=== PATIENT | male | born 1985 | race Caucasian/White ===

== ENCOUNTER 2017-11-24 10:34 | Emergency (ER) | payer SELFPAY ==
[2017-11-24] MEDS ORDERED: ASPIRIN 81 MG TABLET, CHEWABLE PO ONE (11:30)
--- NOTE | 2017-11-24 11:31 | ER Document Report ---
ED Medical Screen (RME) - General Chief Complaint: Chest Wall Pain Stated Complaint: CHEST PAIN, SHORTNESS OF BREATH Time Seen by Provider: 11/24/17 11:26 Notes: RME DISCLOSURE I have seen this patient as part of a Rapid Medical Evaluation and, if applicable, placed any initially appropriate orders. The patient will be seen and fully evaluated, including a full history and physical exam, by a provider ( in Main ED or Fast Track) when a room becomes available. 32-year-old male here with several days of right-sided chest pain radiating down the right arm with some shortness of breath. Symptoms are worse with exertion however he has them at times when he is sitting still as well. Sometimes worse with eating. TRAVEL OUTSIDE OF THE [place] IN LAST 30 DAYS: No - Related Data Allergies/Adverse Reactions: diphenhydramine [From Benadryl] Adverse Reaction (Verified 11/24/17 11:15) Past Medical History - Social History Chew tobacco use (# tins/day): No Frequency of alcohol use: None Drug Abuse: None Neurological Medical History: Reports: Hx Migraine Renal/ Medical History: Denies: Hx Peritoneal Dialysis Past Surgical History: Reports: Hx Testicular Surgery Physical Exam - Vital signs Vitals: Temp Pulse Resp BP Pulse Ox 97.8 F 66 18 134/82 H 98 11/24/17 10:42 11/24/17 10:42 11/24/17 10:42 11/24/17 10:42 11/24/17 10:42 Course - Vital Signs Vital signs: Temp Pulse Resp BP Pulse Ox 97.8 F 66 18 134/82 H 98 11/24/17 10:42 11/24/17 10:42 11/24/17 10:42 11/24/17 10:42 11/24/17 10:42
[2017-11-24 12:25] LABS: HEMATOCRIT 40.9 % (37.9-51.0); HEMOGLOBIN 13.9 g/dL (13.5-17.0); MEAN CORPUSCULAR HEMOGLOBIN 29.6 pg (27.0-33.4); MEAN CORPUSCULAR HGB CONC 34.1 g/dL (32.0-36.0); MEAN CORPUSCULAR VOLUME 87 fl (80-97); PLATELET COUNT 238 10^3/uL (150-450); RED CELL DISTRIBUTION WIDTH 14.1 % (11.5-14.0); WHITE BLOOD COUNT 6.3 10^3/uL (4.0-10.5)
[2017-11-24 12:33] LABS: ALANINE AMINOTRANSFERASE 74 U/L (21-72); ALBUMIN 4.6 g/dL (3.5-5.0); ALKALINE PHOSPHATASE 79 U/L (38-126); ANION GAP 15 (5-19); ASPARTATE AMINO TRANSFERASE 41 U/L (17-59); BILIRUBIN,DIRECT 0.2 mg/dL (0.0-0.4); BILIRUBIN,TOTAL 0.5 mg/dL (0.2-1.3); BLOOD UREA NITROGEN 13 mg/dL (7-20); CALCIUM 9.6 mg/dL (8.4-10.2); CARBON DIOXIDE 26 mmol/L (22-30); CHLORIDE 101 mmol/L (98-107); GLUCOSE 100 mg/dL (75-110); LIPASE 54.8 U/L (23-300); POTASSIUM 4.4 mmol/L (3.6-5.0); SODIUM 141.5 mmol/L (137-145); TOTAL PROTEIN 9.6 g/dL (6.3-8.2)
--- NOTE | 2017-11-24 12:37 | RADIOLOGY REPORT (SQ) ---
EXAM DESCRIPTION: CHEST PA/LAT COMPLETED DATE/TIME: 11/24/2017 12:20 pm REASON FOR STUDY: CP SOB COMPARISON: None. EXAM PARAMETERS: NUMBER OF VIEWS: two views TECHNIQUE: Digital Frontal and Lateral radiographic views of the chest acquired. RADIATION DOSE: NA LIMITATIONS: none FINDINGS: LUNGS AND PLEURA: No opacities, masses or pneumothorax. No pleural effusion. MEDIASTINUM AND HILAR STRUCTURES: No masses or contour abnormalities. HEART AND VASCULAR STRUCTURES: Heart normal size. No evidence for failure. BONES: No acute findings. HARDWARE: None in the chest. OTHER: No other significant finding. IMPRESSION: NO SIGNIFICANT RADIOGRAPHIC FINDING IN THE CHEST. TECHNICAL DOCUMENTATION: JOB ID: [id number] [employer]- All Rights Reserved Reading location - IP/workstation name: [email or web address]
[2017-11-24 12:53] LABS: ABSOLUTE LYMPHOCYTES# (MANUAL) 2.8 10^3/uL (0.5-4.7); ABSOLUTE MONOCYTES # (MANUAL) 0.4 10^3/uL (0.1-1.4); BAND NEUTROPHILS % (MANUAL) 2 % (3-5); BASOPHILS % (MANUAL) 0 % (0-2); EOSINOPHILS % (MANUAL) 2 % (0-6); LYMPHOCYTES % (MANUAL) 43 % (13-45); MONOCYTES % (MANUAL) 6 % (3-13); PLATELET COMMENT ADEQUATE; POLYCHROMASIA SLIGHT; SEGMENTED NEUTROPHILS % (MAN) 45 % (42-78); TOTAL CELLS COUNTED 100
--- NOTE | 2017-11-24 13:07 | ER Document Report ---
ED Cardiac - General Chief Complaint: Chest Wall Pain Stated Complaint: CHEST PAIN, SHORTNESS OF BREATH Time Seen by Provider: 11/24/17 11:26 Mode of Arrival: Ambulatory Information source: Patient Notes: Patient is a 32-year-old male who presents to the ER today for chest pain to the right side of his chest, worse with breathing, pain to his right arm and right leg. 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 He does admit to chronic low back pain that he is seeing a chiropractor for in the past. He denies any cardiac history, does not take any medications for blood pressure or cholesterol, has never had a heart attack or stroke. He states his parents do not have any cardiac history. He is a smoker. TRAVEL OUTSIDE OF THE [place] IN LAST 30 DAYS: No - Related Data Allergies/Adverse Reactions: diphenhydramine [From Benadryl] Adverse Reaction (Verified 11/24/17 11:15) Past Medical History - General Information source: Patient - Social History Smoking Status: Never Smoker Chew tobacco use (# tins/day): No Frequency of alcohol use: None Drug Abuse: None Family History: Reviewed & Not Pertinent Patient has suicidal ideation: No Patient has homicidal ideation: No Neurological Medical History: Reports: Hx Migraine Renal/ Medical History: Denies: Hx Peritoneal Dialysis Past Surgical History: Reports: Hx Testicular Surgery Review of Systems - Review of Systems Constitutional: No symptoms reported EENT: No symptoms reported Cardiovascular: See HPI Respiratory: No symptoms reported Gastrointestinal: No symptoms reported Genitourinary: No symptoms reported Male Genitourinary: No symptoms reported Musculoskeletal: See HPI Skin: No symptoms reported Hematologic/Lymphatic: No symptoms reported Neurological/Psychological: No symptoms reported Physical Exam - Vital signs Vitals: Temp Pulse Resp BP Pulse Ox 97.8 F 66 18 134/82 H 98 11/24/17 10:42 11/24/17 10:42 11/24/17 10:42 11/24/17 10:42 11/24/17 10:42 - Notes Notes: PHYSICAL EXAMINATION: GENERAL: Well-appearing and in no acute distress. HEAD: Atraumatic, normocephalic. EYES: Pupils equal round and reactive to light, extraocular movements intact, sclera anicteric, conjunctiva are normal. NECK: Normal range of motion, supple without lymphadenopathy LUNGS: CTAB and equal. No wheezes rales or rhonchi. HEART: Chest exquisitely tender to light touch to the right chest, regular rate and rhythm without murmurs ABDOMEN: Soft, no tenderness. No guarding, no rebound BACK: no vertebral tenderness, normal ROM GI/: no CVA tenderness EXTREMITIES: Right arm and right leg exquisitely tender to light touch entirely , normal range of motion, no pitting edema. No cyanosis. NEUROLOGICAL: Cranial nerves grossly intact. Normal sensory/motor exams. PSYCH: Normal mood, normal affect. SKIN: Warm, Dry, normal turgor, no rashes or lesions noted Course - Re-evaluation Re-evalutation: 11/24/17 16:42 Patient was exquisitely tender to very light touch to the right chest, right arm and right leg. Because of the complaint of shortness of breath on exertion and even while sitting still with right-sided chest pain, CTA was performed and negative for any pulmonary emboli or acute pathology. Because of right arm and leg pain, CAT scan of the cervical spine as well as spine x-rays were performed and negative for any acute pathology. Lab work is unremarkable today including normal cardiac enzymes. EKG revealed a normal sinus rhythm without evidence of ischemia or abnormality. Patient's pain seems very muscular. I will provide her with a muscle relaxer and have advised that he take anti-inflammatories for pain. - Vital Signs Vital signs: Temp Pulse Resp BP Pulse Ox 97.8 F 66 19 116/67 95 11/24/17 10:42 11/24/17 10:42 11/24/17 14:52 11/24/17 14:52 11/24/17 14:52 - Laboratory Result Diagrams: 11/24/17 11:50 11/24/17 11:50 Laboratory results interpreted by me: 11/24/17 11/24/17 11:50 11:50 RDW 14.1 H Band Neutrophils % 2 L ALT 74 H Total Protein 9.6 H Discharge - Discharge Clinical Impression: Chest wall pain, Right arm pain, Right leg pain Condition: Stable Disposition: HOME, SELF-CARE Additional Instructions: Return immediately for any new or worsening symptoms. Follow up with primary care provider, call tomorrow to make followup appointment. Prescriptions: Ibuprofen [Motrin 800 mg Tablet] 800 mg PO Q8H PRN #30 tab PRN Reason: Methocarbamol [Robaxin 500 mg Tablet] 1,000 mg PO BID PRN #40 tablet PRN Reason: Forms: Return to Work
[2017-11-24] MEDS ORDERED: METHOCARBAMOL 500 MG TABLET PO ONE (13:31)
[2017-11-24] MEDS ORDERED: OXYCODONE-ACETAMINOPHEN 5-325 MG TABLET PO ONE (13:31)
--- NOTE | 2017-11-24 14:06 | RADIOLOGY REPORT (SQ) ---
EXAM DESCRIPTION: CT CERVICAL SPINE WITHOUT COMPLETED DATE/TIME: 11/24/2017 1:50 pm REASON FOR STUDY: cp, sob, right arm pain, right leg pain COMPARISON: None. TECHNIQUE: Axial images acquired through the cervical spine without intravenous contrast. Images re viewed with lung, soft tissue and bone windows. Reconstructed coronal and sagittal MPR images review ed. Images stored on PACS. All CT scanners at this facility use dose modulation, iterative reconstruction, and/or weight based d osing when appropriate to reduce radiation dose to as low as reasonably achievable (ALARA). [facility]: Dose Right [facility]: CareDose [facility]: Dose Right [facility]: Teradose 4D [facility]: OrderMyGear RADIATION DOSE: CT Rad equipment meets quality standard of care and radiation dose reduction techniq ues were employed. CTDIvol: 22.5 mGy. DLP: 493 mGy-cm. mGy. LIMITATIONS: Patient motion. FINDINGS: ALIGNMENT: Anatomic. MINERALIZATION: Normal. VERTEBRAL BODIES: No fractures or dislocation. DISCS: No significant disc disease. FACETS, LATERAL MASSES, POSTERIOR ELEMENTS: No fractures. No dislocation. No acute findings. HARDWARE: None in the spine. VISUALIZED RIBS: No fractures. LUNG APICES AND SOFT TISSUES: No significant or acute findings. OTHER: No other significant finding. IMPRESSION: NO ACUTE OR SIGNIFICANT FINDINGS IN THE CERVICAL SPINE. TECHNICAL DOCUMENTATION: JOB ID: [id number] Quality ID # [id number]: Final reports with documentation of one or more dose reduction techniques (e.g., Au tomated exposure control, adjustment of the mA and/or kV according to patient size, use of iterative reconstruction technique) 2010 [employer]- All Rights Reserved Reading location - IP/workstation name: [email or web address]
--- NOTE | 2017-11-24 14:13 | RADIOLOGY REPORT (SQ) ---
EXAM DESCRIPTION: CTA CHEST COMPLETED DATE/TIME: 11/24/2017 2:00 pm REASON FOR STUDY: cp, sob, right arm pain, right leg pain COMPARISON: None. TECHNIQUE: CT scan of the chest performed using helical scanning technique with dynamic intravenous contrast injection. Images reviewed with lung, soft tissue and bone windows. Reconstructed coronal and sagittal MPR images reviewed. Additional 3 dimensional post-processing performed to develop Maximal Intensity Projection images (GA P). All images stored on PACS. All CT scanners at this facility use dose modulation, iterative reconstruction, and/or weight based d osing when appropriate to reduce radiation dose to as low as reasonably achievable (ALARA). [facility]: Dose Right [facility]: CareDose [facility]: Dose Right [facility]: Teradose 4D [facility]: [place] CONTRAST TYPE AND DOSE: contrast/concentration: Isovue 370.00 mg/ml; Total Contrast Delivered: 82.0 ml; Total Saline Delivered: 110.0 ml RENAL FUNCTION: GFR > 60. RADIATION DOSE: CT Rad equipment meets quality standard of care and radiation dose reduction techniq ues were employed. CTDIvol: 19.8 - 29.8 mGy. DLP: 1126 mGy-cm. . LIMITATIONS: None. FINDINGS: LUNGS AND PLEURA: No masses, infiltrates, pneumothorax. No pleural effusions, calcificati ons. AORTA AND GREAT VESSELS: No aneurysm. Contrast bolus not optimized for the aorta. HEART: No pericardial effusion. No significant coronary artery calcifications. PULMONARY ARTERIES: No emboli visualized in the main pulmonary arteries or the segmental branches. HILAR AND MEDIASTINAL STRUCTURES: No identified masses or abnormal nodes. HARDWARE: None in the chest. UPPER ABDOMEN: No significant findings. Limited exam. THYROID AND OTHER SOFT TISSUES: No masses. No adenopathy. BONES: No acute or significant finding. 3D MIPS: Confirm above findings. OTHER: No other significant finding. IMPRESSION: NORMAL CTA OF THE CHEST. NO PULMONARY EMBOLI. COMMENT: Quality ID # [id number]: Final reports with documentation of one or more dose reduction techniques (e.g., Automated exposure control, adjustment of the mA and/or kV according to patient size, use of iterative reconstruction technique) TECHNICAL DOCUMENTATION: JOB ID: [id number] [employer]- All Rights Reserved Reading location - IP/workstation name: [email or web address]
--- NOTE | 2017-11-24 14:40 | RADIOLOGY REPORT (SQ) ---
EXAM DESCRIPTION: L SPINE WHOLE COMPLETED DATE/TIME: 11/24/2017 2:10 pm REASON FOR STUDY: cp, sob, right arm pain, right leg pain COMPARISON: None. NUMBER OF VIEWS: Five views including obliques. TECHNIQUE: AP, lateral, oblique, and sacral radiographic images acquired of the lumbar spine. LIMITATIONS: None. FINDINGS: MINERALIZATION: Normal. SEGMENTATION: Normal. No transitional anatomy. ALIGNMENT: Normal. VERTEBRAE: Maintained height. No fracture or worrisome bone lesion. DISCS: Preserved height. No significant osteophytes or end plate irregularity. POSTERIOR ELEMENTS: Pedicles and facets are intact. No pars defect or posterior arch defects. HARDWARE: None in the spine. PARASPINAL SOFT TISSUES: Normal. PELVIS: Intact as visualized. No fractures or worrisome bone lesions. SI joints intact. OTHER: No other significant finding. IMPRESSION: NORMAL 5 VIEW LUMBAR SPINE. TECHNICAL DOCUMENTATION: JOB ID: [id number] [employer]- All Rights Reserved Reading location - IP/workstation name: [email or web address]
[2017-11-24 15:01] VITALS: BP 116/67
== END 2017-11-24 15:00 | disposition home or self-care (01) ==
LOC: ER 10:34
DX: R07.89 Other chest pain (principal); R06.02 Shortness of breath; M79.601 Pain in right arm; M79.604 Pain in right leg; M54.5 Low back pain; G89.29 Other chronic pain
CPT/HCPCS: 36415; 71046; 71275; 72110; 72125; 80048; 80076; 83690; 84484; 85025; 99284

== ENCOUNTER 2018-02-10 05:26 | Emergency (ER) | payer SELFPAY ==
[2018-02-10] MEDS ORDERED: IBUPROFEN 800 MG TABLET PO ONE (06:22)
--- NOTE | 2018-02-10 06:41 | ER Document Report ---
ED Extremity Problem, Lower - General Chief Complaint: Leg Pain Stated Complaint: LEG PAIN Time Seen by Provider: 02/10/18 06:08 Notes: 32-year-old male to the emergency department chief complaint of pain in his right leg. 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 Thinks it may be just pulled his muscle in his leg but has never had pain like this in the back of his leg. Pain is in the back of the thigh. Radiates down his lower extremity. Denies any significant swelling of the calf but does have some pain in the right calf. Denies any other symptoms at this time. States that he was worried that he he may have a blood clot because multiple people in his family of had blood clots as well as of blood clots. Denies heavy alcohol or drug abuse. Does not smoke. No recent surgeries. Not any significant risk for DVT or PE. TRAVEL OUTSIDE OF THE [place] IN LAST 30 DAYS: No - HPI Patient complains to provider of: Pain Location: Leg Occurred: Yesterday - Related Data Allergies/Adverse Reactions: diphenhydramine [From Benadryl] Adverse Reaction (Verified 02/10/18 07:39) Past Medical History - General Information source: Patient - Social History Smoking Status: Never Smoker Cigarette use (# per day): No Chew tobacco use (# tins/day): No Frequency of alcohol use: None Drug Abuse: None Lives with: Family Family History: Reviewed & Not Pertinent Patient has suicidal ideation: No Patient has homicidal ideation: No Neurological Medical History: Reports: Hx Migraine Renal/ Medical History: Denies: Hx Peritoneal Dialysis Past Surgical History: Reports: Hx Testicular Surgery Review of Systems - Review of Systems Constitutional: No symptoms reported EENT: No symptoms reported Cardiovascular: No symptoms reported Respiratory: No symptoms reported Gastrointestinal: No symptoms reported Genitourinary: No symptoms reported Male Genitourinary: No symptoms reported Musculoskeletal: See HPI, Muscle pain Skin: No symptoms reported Hematologic/Lymphatic: No symptoms reported Neurological/Psychological: No symptoms reported Physical Exam - Vital signs Vitals: Temp Pulse Resp BP Pulse Ox 98.2 F 78 17 134/79 H 95 02/10/18 05:35 02/10/18 05:35 02/10/18 05:35 02/10/18 05:35 02/10/18 05:35 Interpretation: Normal - General General appearance: Appears well, Alert - HEENT Head: Normocephalic, Atraumatic Eyes: Normal Pupils: PERRL - Respiratory Respiratory status: No respiratory distress Chest status: Nontender Breath sounds: Normal Chest palpation: Normal - Cardiovascular Rhythm: Regular Heart sounds: Normal auscultation Murmur: No - Abdominal Inspection: Normal Distension: No distension Bowel sounds: Normal Tenderness: Nontender Organomegaly: No organomegaly - Back Back: Normal, Nontender - Extremities General upper extremity: Normal inspection, Nontender, Normal color, Normal ROM , Normal temperature General lower extremity: Normal inspection, Normal color, Normal ROM, Normal temperature, Normal weight bearing, Other - Is mild tenderness to palpation in the posterior right thigh area. Mild tenderness palpation in the right posterior calf. NO significant asymmetrical edema or swelling.. No: Thomas's sign Course - Re-evaluation Re-evalutation: 02/10/18 08:14 This time likely represents a muscle strain. Unlikely this is a DVT but due to the fact the patient did bring it up and is concerned about it will do a ultrasound to rule out DVT at this time. Awaiting arrival of horticultural therapist. 02/10/18 09:00 Sound is unremarkable for DVT. Likely a muscle strain. Will DC with some follow-up instructions. Return for any worsening symptoms of concern. Patient was advised if symptoms get worse in the leg begins to get more swollen he should return and repeat the ultrasound. Will give work note with regards duty restrictions. Patient encouraged to follow-up with his regular doctor. - Vital Signs Vital signs: Temp Pulse Resp BP Pulse Ox 98.2 F 78 17 134/79 H 95 02/10/18 05:35 02/10/18 05:35 02/10/18 05:35 02/10/18 05:35 02/10/18 05:35 Discharge - Discharge Clinical Impression: Right hamstring muscle strain Qualifiers: Encounter type: initial encounter Qualified Code(s): S76.311A - Strain of muscle, fascia and tendon of the posterior muscle group at thigh level, right thigh, initial encounter Disposition: HOME, SELF-CARE Instructions: Muscle Strain ([facility]) Prescriptions: Cyclobenzaprine HCl [Flexeril 5 mg Tablet] 5 mg PO TID #15 tablet Ibuprofen [Motrin 800 mg Tablet] 800 mg PO Q8H PRN 30 Days #30 tab PRN Reason: Forms: Return to Work
[2018-02-10] MEDS ORDERED: HYDROCODONE/ACETAMINOPHEN 5-325 MG TABLET PO PRN (08:10)
[2018-02-10 09:16] VITALS: BP 112/72
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
== END 2018-02-10 09:16 | disposition home or self-care (01) ==
LOC: ER 05:26
DX: S76.311A Strain of muscle, fascia and tendon of the posterior muscle group at thigh level, right thigh, initial encounter (principal); M79.604 Pain in right leg; X50.0XXA Overexertion from strenuous movement or load, initial encounter
CPT/HCPCS: 93971; 99284

== ENCOUNTER 2018-06-08 04:03 | Emergency (ER) | payer SELFPAY ==
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
[2018-06-08 05:12] LABS: ABSOLUTE EOSINOPHILS # (AUTO) 0.1 10^3/uL (0.0-0.6); ABSOLUTE LYMPHOCYTES (AUTO) 1.8 10^3/uL (0.5-4.7); ABSOLUTE MONOCYTES (AUTO) 0.6 10^3/uL (0.1-1.4); ABSOLUTE NEUT (AUTO) 2.2 10^3/uL (1.7-8.2); BASOPHILS % (AUTO) 0.6 % (0-2); EOSINOPHILS % (AUTO) 2.9 % (0-6); HEMATOCRIT 34.8 % (37.9-51.0); HEMOGLOBIN 11.6 g/dL (13.5-17.0); LYMPHOCYTES % (AUTO) 38.5 % (13-45); MEAN CORPUSCULAR HEMOGLOBIN 29.4 pg (27.0-33.4); MEAN CORPUSCULAR HGB CONC 33.3 g/dL (32.0-36.0); MEAN CORPUSCULAR VOLUME 88 fl (80-97); MONOCYTES % (AUTO) 12.1 % (3-13); PLATELET COUNT 199 10^3/uL (150-450); RED BLOOD COUNT 3.95 10^6/uL (4.35-5.55); RED CELL DISTRIBUTION WIDTH 14.9 % (11.5-14.0); SEGMENTED NEUTROPHILS % (AUTO) 45.9 % (42-78); TOTAL CELLS COUNTED % (AUTO) 100 %; WHITE BLOOD COUNT 4.8 10^3/uL (4.0-10.5)
[2018-06-08 05:21] LABS: ANION GAP 10 (5-19); BLOOD UREA NITROGEN 15 mg/dL (7-20); CALCIUM 8.8 mg/dL (8.4-10.2); CARBON DIOXIDE 25 mmol/L (22-30); CHLORIDE 106 mmol/L (98-107); GLUCOSE 95 mg/dL (75-110); POTASSIUM 3.9 mmol/L (3.6-5.0); SODIUM 140.8 mmol/L (137-145)
[2018-06-08 05:25] LABS: ALCOHOL < 10 mg/dL (NONE DETECTED)
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
[2018-06-08] MEDS ORDERED: ACETAMINOPHEN 325 MG TABLET PO ONE (06:12)
[2018-06-08 06:15] VITALS: BP 124/80
[2018-06-08 06:37] LABS: APPEARANCE,URINE CLEAR; BILIRUBIN,URINE NEGATIVE (NEGATIVE); COLOR,URINE YELLOW; GLUCOSE, URINE NEGATIVE (NEGATIVE); KETONES,URINE NEGATIVE (NEGATIVE)
[2018-06-08 06:38] LABS: LEUKOCYTE ESTERASE,URINE NEGATIVE (NEGATIVE); NITRITE,URINE NEGATIVE (NEGATIVE); PROTEIN,URINE 30 mg/dL (NEGATIVE); UROBILINOGEN,URINE NEGATIVE mg/dL (<2.0)
[2018-06-08 06:48] LABS: URINE AMPHETAMINES SCREEN NEGATIVE; URINE BARBITURATES SCREEN NEGATIVE; URINE BENZODIAZEPINES SCREEN NEGATIVE; URINE COCAINE SCREEN NEGATIVE; URINE MARIJUANA (THC) SCREEN NEGATIVE; URINE METHADONE SCREEN NEGATIVE; URINE PHENCYCLIDINE SCREEN NEGATIVE
== END 2018-06-08 06:24 | disposition home or self-care (01) ==
LOC: ER 04:03
DX: R41.0 Disorientation, unspecified (principal); R41.3 Other amnesia; S80.812A Abrasion, left lower leg, initial encounter; S80.811A Abrasion, right lower leg, initial encounter; X37.0XXA Hurricane, initial encounter
CPT/HCPCS: 36415; 70450; 71046; 80048; 80307; 81001; 85025; 99285

== ENCOUNTER 2019-03-15 10:10 | Emergency (ER) | payer SELFPAY ==
[2019-03-15] MEDS ORDERED: NORMAL SALINE 1000 ML 1,000 ML IV ONE (10:30)
[2019-03-15] MEDS ORDERED: ONDANSETRON HCL INJ/PF 4 MG/2 ML SDV IV ONE (10:31)
--- NOTE | 2019-03-15 10:33 | ER Document Report ---
ED Medical Screen (RME) - General Chief Complaint: Nausea/Vomiting Stated Complaint: HEADACHE,VOMITING Time Seen by Provider: 03/15/19 10:29 Mode of Arrival: Wheelchair Information source: Patient Notes: Patient presents complaining of headache pain with nausea vomiting and diarrhea that started yesterday. Patient reports having 5 vomiting episodes as well as 5 diarrhea episodes. Patient also complains of right-sided chest pain that started today with some mild shortness of breath. Patient reports abdominal tenderness to the left upper quadrant with vomiting. Patient denies any cough. I have greeted and performed a rapid initial assessment of this patient. A comprehensive ED assessment and evaluation of the patient, analysis of test results and completion of the medical decision making process will be conducted by additional ED providers. TRAVEL OUTSIDE OF THE [place] IN LAST 30 DAYS: No - Related Data Allergies/Adverse Reactions: diphenhydramine [From Benadryl] Adverse Reaction (Verified 03/15/19 10:12) Past Medical History - Social History Chew tobacco use (# tins/day): No Frequency of alcohol use: None Drug Abuse: None Neurological Medical History: Reports: Hx Migraine Renal/ Medical History: Denies: Hx Peritoneal Dialysis Past Surgical History: Reports: Hx Testicular Surgery Physical Exam - Vital signs Vitals: Temp Pulse Resp BP Pulse Ox 98.2 F 76 18 130/74 H 99 03/15/19 10:03/15/19 10:03/15/19 10:03/15/19 10:03/15/19 10:17 - Cardiovascular Rhythm: Regular Heart sounds: S1 appreciated, S2 appreciated - Neurological Cognition: Normal Orientation: AAOx4 [place] Coma Scale Eye Opening: Spontaneous [place] Coma Scale Verbal: Oriented [place] Coma Scale Motor: Obeys Commands [place] Coma Scale Total: 15 Course - Vital Signs Vital signs: Temp Pulse Resp BP Pulse Ox 98.2 F 76 18 130/74 H 99 03/15/19 10:03/15/19 10:03/15/19 10:03/15/19 10:17 03/15/19 10:17
--- NOTE | 2019-03-15 11:02 | RADIOLOGY REPORT (SQ) ---
EXAM DESCRIPTION: CHEST 2 VIEWS COMPLETED DATE/TIME: 03/15/2019 10:43 am REASON FOR STUDY: cp COMPARISON: 06/08/2018 EXAM PARAMETERS: NUMBER OF VIEWS: two views TECHNIQUE: Digital Frontal and Lateral radiographic views of the chest acquired. RADIATION DOSE: NA LIMITATIONS: none FINDINGS: LUNGS AND PLEURA: No opacities, masses or pneumothorax. No pleural effusion. MEDIASTINUM AND HILAR STRUCTURES: No masses or contour abnormalities. HEART AND VASCULAR STRUCTURES: Heart normal size. No evidence for failure. BONES: No acute findings. HARDWARE: None in the chest. OTHER: No other significant finding. IMPRESSION: NO ACUTE RADIOGRAPHIC FINDING IN THE CHEST. TECHNICAL DOCUMENTATION: JOB ID: [id number] [employer]- All Rights Reserved Reading location - IP/workstation name: [email or web address]
[2019-03-15 11:04] LABS: ABSOLUTE EOSINOPHILS # (AUTO) 0.1 10^3/uL (0.0-0.6); ABSOLUTE LYMPHOCYTES (AUTO) 1.5 10^3/uL (0.5-4.7); ABSOLUTE MONOCYTES (AUTO) 0.6 10^3/uL (0.1-1.4); ABSOLUTE NEUT (AUTO) 3.1 10^3/uL (1.7-8.2); BASOPHILS % (AUTO) 0.5 % (0-2); EOSINOPHILS % (AUTO) 1.6 % (0-6); HEMATOCRIT 38.5 % (37.9-51.0); HEMOGLOBIN 13.3 g/dL (13.5-17.0); LYMPHOCYTES % (AUTO) 28.2 % (13-45); MEAN CORPUSCULAR HEMOGLOBIN 29.5 pg (27.0-33.4); MEAN CORPUSCULAR HGB CONC 34.5 g/dL (32.0-36.0); MEAN CORPUSCULAR VOLUME 85 fl (80-97); MONOCYTES % (AUTO) 11.4 % (3-13); PLATELET COUNT 204 10^3/uL (150-450); RED BLOOD COUNT 4.51 10^6/uL (4.35-5.55); SEGMENTED NEUTROPHILS % (AUTO) 58.3 % (42-78); TOTAL CELLS COUNTED % (AUTO) 100 %; WHITE BLOOD COUNT 5.3 10^3/uL (4.0-10.5)
[2019-03-15] MEDS ORDERED: KETOROLAC TROMETHAMINE INJ/PF 30 MG/1 ML SDV IV ONE (11:15)
[2019-03-15] MEDS ORDERED: LORAZEPAM INJ 2 MG/1 ML VIAL IV ONE ×2 (11:16→13:34)
[2019-03-15] MEDS ORDERED: DEXAMETHASONE 4 MG TABLET PO ONE (11:16)
--- NOTE | 2019-03-15 11:20 | ER Document Report ---
ED General - General Chief Complaint: Nausea/Vomiting Stated Complaint: HEADACHE,VOMITING Time Seen by Provider: 03/15/19 10:29 Mode of Arrival: Wheelchair Information source: Patient, Relative, [facility] Records Notes: 33-year-old male with migraine headaches presents with complaint of headache, na usea, vomiting, diarrhea, right-sided chest pain, left upper quadrant abdominal pain. Patient states headache started 1 day prior to arrival. It is located around his head and feels like a throbbing constant pain that was not relieved with his 1 dose of Tylenol that he took last night. Patient's last migraine headache was approximately 1 week ago. Patient has had 4-5 episodes of vomiting and diarrhea. He denies any blood in his emesis or stool. He denies sick contacts. His right-sided chest pain is a aching burning pain and he believes its associated with the vomiting. He denies any smoking history, cardiac history or family history of early cardiac disease. Patient's left upper mu drant abdominal pain is also described as a dull ache. TRAVEL OUTSIDE OF THE [place] IN LAST 30 DAYS: No - HPI Onset: Yesterday Onset/Duration: Gradual, Persistent Quality of pain: Achy, Cramping, Throbbing Severity: Mild Associated symptoms: Diarrhea, Headache, Nausea, Vomiting Exacerbated by: Food Relieved by: Denies Similar symptoms previously: No Recently seen / treated by doctor: No - Related Data Allergies/Adverse Reactions: diphenhydramine [From Benadryl] Adverse Reaction (Verified 03/15/19 10:12) Past Medical History - General Information source: Patient - Social History Smoking Status: Unknown if Ever Smoked Chew tobacco use (# tins/day): No Frequency of alcohol use: None Drug Abuse: None Lives with: Family Family History: Reviewed & Not Pertinent Patient has suicidal ideation: No Patient has homicidal ideation: No Neurological Medical History: Reports: Hx Migraine Renal/ Medical History: Denies: Hx Peritoneal Dialysis Past Surgical History: Reports: Hx Testicular Surgery Review of Systems - Review of Systems Notes: REVIEW OF SYSTEMS: CONSTITUTIONAL : Denies fever, chills, or sweats. Denies recent illness. Denies weight loss, recent hospitalizations. EENT: Denies visual changes, eye pain. Denies sore throat, oral lesions, difficulty swallowing. CARDIOVASCULAR: + chest pain. Denies palpitations. Denies lower extremity edema. RESPIRATORY: Denies cough. Denies shortness of breath, wheezing. GASTROINTESTINAL: Denies abdominal pain or distention. + nausea, vomiting, diarrhea. Denies blood in vomitus, stools, or per rectum. Denies black, tarry stools. Denies constipation. GENITOURINARY: Denies difficulty urinating, painful urination, frequency, blood in urine, testicular pain or penile discharge. MUSCULOSKELETAL: Denies back or neck pain or stiffness. Denies joint pain or swelling. SKIN: Denies rash, lesions or sores. HEMATOLOGIC : Denies easy bruising or bleeding. LYMPHATIC: Denies swollen glands. NEUROLOGICAL: Denies confusion or altered mental status. Denies loss of consciousness. Denies dizziness or lightheadedness. Denies weakness or paralysis. Denies problems difficulty with ambulation, slurred speech. Denies sensory loss, numbness, or tingling. Denies seizures. PSYCHIATRIC: Denies anxiety or stress. Denies depression, suicidal ideation, or Physical Exam - Vital signs Vitals: Temp Pulse Resp BP Pulse Ox 98.2 F 76 18 130/74 H 99 03/15/19 10:17 03/15/19 10:17 03/15/19 10:17 03/15/19 10:17 03/15/19 10:17 - Notes Notes: PHYSICAL EXAMINATION: GENERAL: Well-appearing, well-nourished and in no acute distress. HEAD: Atraumatic, normocephalic. EYES: Pupils equal round and reactive to light, extraocular movements intact, sclera anicteric, conjunctiva are normal. ENT: Nares patent, oropharynx clear without exudates. Moist mucous membranes. NECK: Normal range of motion, supple without lymphadenopathy LUNGS: Breath sounds clear to auscultation bilaterally and equal. No wheezes rales or rhonchi. HEART: Regular rate and rhythm without murmurs ABDOMEN: Soft, nontender, nondistended abdomen. No guarding, no rebound. No masses appreciated. Musculoskeletal: Normal range of motion, no pitting or edema. No cyanosis. NEUROLOGICAL: Cranial nerves grossly intact. Normal speech, normal gait. Normal sensory, motor exams PSYCH: Normal mood, normal affect. SKIN: Warm, Dry, normal turgor, no rashes or lesions noted. Course - Re-evaluation Re-evalutation: Temp Pulse Resp BP Pulse Ox 98.2 F 76 18 130/74 H 99 03/15/19 10:17 03/15/19 10:17 03/15/19 10:17 03/15/19 10:17 03/15/19 10:17 Laboratory 03/15/19 03/15/19 03/15/19 10:47 10:47 10:47 WBC 5.3 RBC 4.51 Hgb 13.3 L Hct 38.5 MCV 85 MCH 29.5 MCHC 34.5 RDW 14.0 Plt Count 204 Seg Neutrophils % 58.3 Lymphocytes % 28.2 Monocytes % 11.4 Eosinophils % 1.6 Basophils % 0.5 Absolute Neutrophils 3.1 Absolute Lymphocytes 1.5 Absolute Monocytes 0.6 Absolute Eosinophils 0.1 Absolute Basophils 0.0 Sodium 139.4 Potassium 4.3 Chloride 103 Carbon Dioxide 25 Anion Gap 11 BUN 14 Creatinine 0.63 Est GFR ( Amer) > 60 Est GFR (Non-Af Amer) > 60 Glucose 104 Calcium 9.8 Total Bilirubin 0.5 Direct Bilirubin 0.2 Neonat Total Bilirubin Not Reportable Neonat Direct Bilirubin Not Reportable Neonat Indirect Bili Not Reportable AST 42 ALT 71 Alkaline Phosphatase 79 Troponin I < 0.012 Total Protein 9.9 H Albumin 4.6 Lipase 40.6 Chest X-Ray 03/15/19 10:30 IMPRESSION: NO ACUTE RADIOGRAPHIC FINDING IN THE CHEST. Temp Pulse Resp BP Pulse Ox 97.5 F 62 16 105/66 98 03/15/19 12:46 03/15/19 12:46 03/15/19 12:46 03/15/19 12:46 03/15/19 12:46 03/15/19 11:31 33-year-old male presents with multiple complaints including headache, nausea, vomiting, upper abdominal pain, right-sided chest pain all that started yesterday. Patient is very well-appearing, alert, awake and has a normal physical and neurologic exam. Vital signs reviewed and within normal limits. Patient does not appear toxic or dehydrated. He is in no acute distress. Patient did receive IV fluids, Toradol, Zofran, Ativan and Decadron. We will really evaluate. 03/15/19 17:40 Patient now resting comfortably. Will be discharged home with Motrin. Presentation of chest pain in an otherwise well appearing patient. Low clinical suspicion for ACS given clinical history, exam, EKG without ST elevations or depressions, and negative initial troponin. HEART score less than or equal to 3. PE also seems unlikely given clinical history, absence of tachycardia or dyspnea. Patient is PERC criteria negative. CXR without evidence of pneumothorax or pneumonia. No widened mediastinum. Aortic dissection also seems unlikely given history, symmetric pulses, CXR, and vitals. HEART Score: History-0 ECG-0 Age-0 Risk Factors-0 Troponin-0 Total: 0 Chest pain in a patient without evidence of cardiac or other serious etiology on workup today. I discussed with patient that, based on their age, risk factors and emergency department testing today, the likelihood that their symptoms are related to a heart attack is very low (estimated risk of heart attack or over the next 30 days of less than 1%). The patient demonstrates decision making capacity and has verbalized an understanding of these risks to me. Based on this, the patient has chosen to follow-up as an outpatient. Usual chest pain return precautions reviewed. The patient states understanding and agreement with this plan. - Vital Signs Vital signs: Temp Pulse Resp BP Pulse Ox 97.5 F 62 16 105/66 98 03/15/19 12:46 03/15/19 12:46 03/15/19 12:46 03/15/19 12:46 03/15/19 12:46 - Laboratory Result Diagrams: 03/15/19 10:47 03/15/19 10:47 Laboratory results interpreted by me: 03/15/19 03/15/19 10:47 10:47 Hgb 13.3 L Total Protein 9.9 H - Diagnostic Test Radiology reviewed: Image reviewed, Reports reviewed - EKG Interpretation by Me EKG shows normal: Sinus rhythm Rate: Normal Rhythm: NSR When compared to previous EKG there are: No significant change Discharge - Discharge Clinical Impression: Nausea vomiting and diarrhea Chest pain Qualifiers: Chest pain type: unspecified Qualified Code(s): R07.9 - Chest pain, unspecified Headache Qualifiers: Headache type: unspecified Headache chronicity pattern: unspecified pattern Intractability: not intractable Qualified Code(s): R51 - Headache Condition: Good Disposition: HOME, SELF-CARE Instructions: Diarrhea, Nonspecific ([facility]), Headache ([facility]), Intravenous (IV) Fluids ([facility]), Vomiting ([facility]) Additional Instructions: Your symptoms are likely due to a viral illness and should resolve in the next several days. You can take lunm-lsa-uizlyaf loperamide also known as Imodium as needed for diarrhea per box instructions. Continue to stay hydrated with plenty of solution such as Gatorade or Pedialyte. You are being prescribed Zofran to take as needed for nausea and vomiting. Please return if you develop severe abdominal pain, pass out, become unable to tolerate any oral fluids for 12 more hours, or any other symptoms that are concerning to you. You were seen today for chest pain. The exact cause of your pain is unclear. However, based on your cardiac enzyme testing, chest x-ray, and EKG it does not appear that it is from an immediately life-threatening cause at this time. Although your testing here is normal is critical that you follow-up with your primary care physician for continued evaluation of this chest pain and possible stress testing. I recommended you see your physician within the next 24-48 hours to be evaluated for consideration of a stress test. Please return to emergency department immediately if you have worsening of your chest pain, shortness of breath, vomiting, become unable to exert yourself due to pain or difficulty breathing, you pass out, or have any pain that radiates into your arm s, jaw, or back. Please also return if you have any additional symptoms that are concerning to you. You have been seen in the Emergency Department (ED) for a headache. Please use Tylenol (acetaminophen) or Motrin (ibuprofen) as needed for symptoms, but only as written on the box. As we have discussed, please follow up with your primary care doctor as soon as possible regarding today's ED visit and your headache symptoms. Call your doctor or return to the ED if you have a worsening headache, sudden and severe headache, confusion, slurred speech, facial droop, weakness or numbness in any arm or leg, extreme fatigue, or other symptoms that concern you. Prescriptions: Ibuprofen [Motrin 600 mg Tablet] 600 mg PO Q8HP PRN #20 tablet PRN Reason: Metoclopramide HCl [Reglan 10 mg Tablet] 1 tab PO Q8H PRN #10 tablet PRN Reason: For Headache Ondansetron [Zofran Odt 4 mg Tablet] 1 - 2 tab PO Q4H PRN #15 tab.rapdis PRN Reason: For Nausea/Vomiting Forms: Elevated Blood Pressure, Return to Work
[2019-03-15 11:21] LABS: ALANINE AMINOTRANSFERASE 71 U/L (21-72); ALBUMIN 4.6 g/dL (3.5-5.0); ALKALINE PHOSPHATASE 79 U/L (38-126); ANION GAP 11 (5-19); ASPARTATE AMINO TRANSFERASE 42 U/L (17-59); BILIRUBIN,DIRECT 0.2 mg/dL (0.0-0.4); BILIRUBIN,TOTAL 0.5 mg/dL (0.2-1.3); BLOOD UREA NITROGEN 14 mg/dL (7-20); CALCIUM 9.8 mg/dL (8.4-10.2); CARBON DIOXIDE 25 mmol/L (22-30); CHLORIDE 103 mmol/L (98-107); GLUCOSE 104 mg/dL (75-110); LIPASE 40.6 U/L (23-300); POTASSIUM 4.3 mmol/L (3.6-5.0); SODIUM 139.4 mmol/L (137-145); TOTAL PROTEIN 9.9 g/dL (6.3-8.2)
[2019-03-15 12:47] VITALS: BP 105/66
[2019-03-15] MEDS ORDERED: METOCLOPRAMIDE HCL INJ/PF 10 MG/2 ML SDV IV ONE (12:58)
--- NOTE | 2019-03-15 20:33 | EKG REPORT ---
SEVERITY:- NORMAL ECG - SINUS RHYTHM : Confirmed by: Mckenzie Crowley 15-Mar-2019 20:32:05
== END 2019-03-15 13:44 | disposition home or self-care (01) ==
LOC: ER 10:10
DX: R11.2 Nausea with vomiting, unspecified (principal); R51 Headache; R19.7 Diarrhea, unspecified; R07.9 Chest pain, unspecified; R10.12 Left upper quadrant pain; Z86.69 Personal history of other diseases of the nervous system and sense organs
CPT/HCPCS: 93005; 96376; 99284; 96361; 96374; 96375; 36415; 83690; 85025; 80053; 84484; 71046; 93010; J1885; J2765; J2060; J2405; J7030

== ENCOUNTER 2019-05-23 04:57 | Emergency (ER) | payer SELFPAY ==
[2019-05-23] MEDS ORDERED: PREDNISONE 20 MG TABLET PO ONE (06:07)
[2019-05-23] MEDS ORDERED: FAMOTIDINE 20 MG TABLET PO ONE (06:07)
--- NOTE | 2019-05-23 06:07 | ER Document Report ---
HPI - HPI Time Seen by Provider: 05/23/19 06:06 Pain Level: 2 Notes: Patient is an otherwise healthy 33-year-old male presenting with complaint of hives to his bilateral arms that have been present for 2 days. Patient is unsure what he is allergic to. He has not taken any medications for this. He does report that his parents told him he is allergic to Benadryl so he has not taken any. He denies any difficulty breathing, swallowing or speaking. Past Medical History - General Information source: Patient - Social History Smoking Status: Never Smoker Frequency of alcohol use: None Drug Abuse: None Family History: Reviewed & Not Pertinent Neurological Medical History: Reports: Hx Migraine Renal/ Medical History: Denies: Hx Peritoneal Dialysis Past Surgical History: Reports: Hx Testicular Surgery Vertical Provider Document - CONSTITUTIONAL Notes: PHYSICAL EXAMINATION: GENERAL: Well-appearing, well-nourished and in no acute distress. HEAD: Atraumatic, normocephalic. EYES: Pupils equal round extraocular movements intact, conjunctiva are normal. ENT: Nares patent NECK: Normal range of motion LUNGS: No respiratory distress, lung sounds clear and equal bilaterally. Musculoskeletal: Normal range of motion NEUROLOGICAL: Normal speech, normal gait. PSYCH: Normal mood, normal affect. SKIN: Scattered hives noted to patient's bilateral upper extremities. - INFECTION CONTROL TRAVEL OUTSIDE OF THE [place] IN LAST 30 DAYS: No Course - Re-evaluation Re-evalutation: Patient was given prednisone and Pepcid here in the emergency department. He reports an allergy to Benadryl so this was withheld. He did have improvement of his symptoms after administration of medications. He will be discharged home with prescriptions for prednisone and Pepcid and encouraged to follow-up with his primary care provider. Strict ED return precautions were discussed. - Vital Signs Vital signs: Temp Pulse Resp BP Pulse Ox 98.6 F 89 16 147/88 H 99 05/23/19 05:05 05/23/19 05:05 05/23/19 05:05 05/23/19 05:05 05/23/19 05:05 Discharge - Discharge Clinical Impression: Hives Condition: Stable Disposition: HOME, SELF-CARE Additional Instructions: Acute Urticaria Your hives are due to an allergic reaction. Hives are sometimes accompanied by swelling of the hands, feet and face, hoarseness, and difficulty swallowing or breathing. Hives may be due to exposure to medication, animal dander, foods, infection, or insect bites. Medication allergy is common, even if this same medication caused no problems in the past. Often, the specific allergic agent can't be identified unless repeated episodes occur. Your treatment includes the following: (1) Stop any suspicious medications. This will be discussed with you. (2) Oral antihistamines for the next four to five days (Benadryl, Atarax). (3) Avoid aspirin until the hives completely disappear. (4) Avoid hot baths or showers until the hives are completely gone. Sometimes adrenaline shots or cortisone are required for severe cases of hives. "Allergy shots" are sometimes required. Call the doctor or return if faintness, difficulty swallowing, tightness in the chest, or wheezing occurs. Please take medications as prescribed. No hot showers, follow-up with primary care provider to consider allergy testing. Prescriptions: Famotidine [Pepcid 40 mg Tablet] 40 mg PO BID #10 tablet Forms: Return to Work
[2019-05-23 07:03] VITALS: BP 128/78
== END 2019-05-23 07:02 | disposition home or self-care (01) ==
LOC: ER 04:57
DX: L50.9 Urticaria, unspecified (principal); M25.561 Pain in right knee
CPT/HCPCS: 99282; J7512

== ENCOUNTER 2019-05-25 07:37 | Emergency (ER) | payer SELFPAY ==
--- NOTE | 2019-05-25 08:16 | ER Document Report ---
ED General - General Chief Complaint: Rash Stated Complaint: rash Time Seen by Provider: 05/25/19 08:15 Primary Care Provider: GEORGE CHAUHAN DO [ACTIVE STAFF] - Follow up in 1 week (for dermatology follow up) TRAVEL OUTSIDE OF THE [place] IN LAST 30 DAYS: No - HPI Notes: 33-year-old male to the emergency department with itchy red rash to his arms and legs for the past several days. He states that he was seen here about 2 days ago and was placed on prednisone. He states that he has been having a reaction to prednisone every time he takes it. He states that when he takes that he just feels "completely high and cannot move". He states that he stopped taking it and the rash has come back. He is allergic to Benadryl so he has not been able to take that for itching relief. He denies any new toiletries, new soaps, new detergent, new diet. He has not been following with a beam machine operator. He states "when they give me the shot here I do well." - Related Data Allergies/Adverse Reactions: diphenhydramine [From Benadryl] Adverse Reaction (Verified 05/25/19 07:37) Past Medical History - General Information source: Patient - Social History Smoking Status: Current Every Day Smoker Frequency of alcohol use: Occasional Drug Abuse: None Family History: Reviewed & Not Pertinent Neurological Medical History: Reports: Hx Migraine Renal/ Medical History: Denies: Hx Peritoneal Dialysis Past Surgical History: Reports: Hx Testicular Surgery Review of Systems - Review of Systems Constitutional: No symptoms reported. denies: Chills, Fever EENT: No symptoms reported. denies: Difficulty swallowing, Throat swelling, Mouth pain, Mouth swelling Cardiovascular: denies: Chest pain, Palpitations, Dyspnea, Syncope Respiratory: denies: Cough, Short of breath Gastrointestinal: denies: Abdominal pain, Diarrhea, Nausea, Vomiting Genitourinary: denies: See HPI Musculoskeletal: No symptoms reported Skin: See HPI, Rash Hematologic/Lymphatic: No symptoms reported Neurological/Psychological: No symptoms reported -: Yes All other systems reviewed and negative Physical Exam - Vital signs Vitals: Temp Pulse Resp BP Pulse Ox 98.0 F 75 16 137/82 H 97 05/25/19 07:41 05/25/19 07:41 05/25/19 07:41 05/25/19 07:41 05/25/19 07:41 Interpretation: Normal - General General appearance: Appears well, Alert - HEENT Head: Normocephalic, Atraumatic Eyes: Normal Pupils: PERRL - Respiratory Respiratory status: No respiratory distress Chest status: Nontender Breath sounds: Normal Chest palpation: Normal - Cardiovascular Rhythm: Regular Heart sounds: Normal auscultation Murmur: No - Psychological Associated symptoms: Normal affect, Agitated, Anxious - Patient with pressured speech and is obviously agitated with his rash and the fact that is not gotten better. - Skin Skin Temperature: Warm Skin Moisture: Dry Skin Color: Normal Skin irregularity: Rash - There are several areas of your urticaria to bilateral forearms and legs that are erythematous in appearance and tom. There is no vesicles. There is no sloughing of the skin. There is no scaling. There is no silver appearance. There is no central umbilication. There is no evidence of superimposed infection. There is no burrowing or linear pattern. Course - Re-evaluation Re-evalutation: Patient return to the emergency department with worsening of his urticaria from several days ago. Prednisone was not a good fit for him. He did have Solu- Medrol the last time he was here and he states that that worked for him. We will give a second dose of 125 mg of Solu-Medrol IM. We will monitor the patient for approximately 30+ minutes for any reaction. Rounded on patient and he states that his symptoms have improved after getting Solu-Medrol. Plan will be to send home with Medrol Dosepak and see if that helps him. I have also encouraged him to go see a beam machine operator without fail. He voices understanding and agrees with the plan. - Vital Signs Vital signs: Temp Pulse Resp BP Pulse Ox 98.7 F 83 16 135/95 H 98 05/25/19 09:32 05/25/19 09:32 05/25/19 09:32 05/25/19 09:32 05/25/19 09:32 Discharge - Discharge Clinical Impression: Urticaria Condition: Stable Disposition: HOME, SELF-CARE Instructions: Acute Urticaria ([facility]) Additional Instructions: Stop prednisone. Take medrol dose keo. follow with beam machine operator without fail. Prescriptions: Methylprednisolone [Medrol Dosepack (4 mg/Tab) 21 Tab/Dosepak] 4 mg PO ASDIR PRN #21 tab.ds.pk PRN Reason: Referrals: GEORGE CHAUHAN DO [ACTIVE STAFF] - Follow up in 1 week (for dermatology follow up)
[2019-05-25] MEDS ORDERED: METHYLPREDNISOLONE INJ 125 MG/2 ML SDV IM ONE (08:33)
[2019-05-25 09:33] VITALS: BP 135/95
== END 2019-05-25 09:39 | disposition home or self-care (01) ==
LOC: ER 07:37
DX: L50.9 Urticaria, unspecified (principal); F17.200 Nicotine dependence, unspecified, uncomplicated
CPT/HCPCS: 99282; 96372; J2930

== ENCOUNTER 2019-05-27 01:36 | Emergency (ER) | payer SELFPAY ==
[2019-05-27 01:53] VITALS: BP 143/91
--- NOTE | 2019-05-27 02:12 | ER Document Report ---
ED General - General Chief Complaint: Allergic Reaction Stated Complaint: RASH Time Seen by Provider: 05/27/19 01:46 Notes: Patient is a pleasant 33-year-old male presents with complaint of a rash and hallucinations. Patient says he felt the rash several days ago. He was seen here initially on the second. He was placed on Pepcid. Pepcid is not working and did not make him feel good and therefore came back and was placed on what appears to be a Medrol Dosepak. Says since starting the Medrol Dosepak he is started hallucinating. He says he last took the pill approximately 4 hours ago he says he noticed shortly after taking the pill he started having hallucinations again. He therefore is come to the ER. So the rash is pruritic not painful. He says he first started noticing a rash after he started using a new soap from [employer]. Says the rash has improved some since it first started. No fevers. No difficulty breathing. No difficulty swallowing. No vomiting. No other complaints at this time. Patient denies any history of psychiatric illness or previous hallucinations. TRAVEL OUTSIDE OF THE [place] IN LAST 30 DAYS: No - Related Data Allergies/Adverse Reactions: diphenhydramine [From Benadryl] Adverse Reaction (Verified 05/25/19 07:37) Past Medical History - Social History Smoking Status: Never Smoker Frequency of alcohol use: None Drug Abuse: None Family History: Reviewed & Not Pertinent Neurological Medical History: Reports: Hx Migraine Renal/ Medical History: Denies: Hx Peritoneal Dialysis Past Surgical History: Reports: Hx Testicular Surgery Review of Systems - Review of Systems Notes: My Normal Review Basic REVIEW OF SYSTEMS: CONSTITUTIONAL : Denies fever, chills, or sweats. Denies recent illness. EENT: Denies eye, ear, throat, or mouth pain or symptoms. Denies nasal or sinus congestion. RESPIRATORY: Denies cough, cold, or chest congestion. Denies shortness of breath, difficulty breathing, or wheezing. GASTROINTESTINAL: Denies abdominal pain. Denies nausea, vomiting, or diarrhea. MUSCULOSKELETAL: Denies neck or back pain or joint pain or swelling. SKIN: Better hives-like rash NEUROLOGICAL: Denies altered mental status or loss of consciousness. Denies headache. Denies weakness or paralysis or loss of use of either side. Denies problems with gait or speech. Denies sensory or motor loss. ALL OTHER SYSTEMS REVIEWED AND NEGATIVE. Physical Exam - Vital signs Vitals: Temp Pulse Resp BP Pulse Ox 97.2 F 81 16 143/91 H 98 05/27/19 01:51 05/27/19 01:51 05/27/19 01:51 05/27/19 01:51 05/27/19 01:51 - Notes Notes: General Appearance: Well nourished, alert, cooperative, no acute distress, no obvious discomfort. Vitals: reviewed, See vital signs table. Head: no swelling or tenderness to the head Eyes: PERRL, EOMI, Conjuctiva clear Mouth: No decreasd moistureerally. Heart: Normal rate, Regular rythm, No murmur, no rub Abdomen: Normal BS, soft, No rigidity, No abdominal tenderness, No guarding, no rebound, no abdominal masses, no organomegaly Extremities: strength 5/5 in all extremities, good pulses in all extremities, no swelling or tenderness in the extremities, no edema. Skin: Scattered hives-like rash mainly in upper extremities. There is a few areas over the lower extremities. Torso is almost completely clear. No rash on face. Neuro: speech clear, oriented x 3, normal affect, responds appropriately to questions. Patient currently is not showing evidence of active hallucinations. He is little bit pressured with his speech as he is a bit anxious because he say s he was just recently hallucinating deafly shortly after taking the medication. He says that is starting to improve. He moves all extremities without difficulty. No tremor. Normal gait. Course - Re-evaluation Re-evalutation: 05/27/19 02:14 I feel the patient is safe to be discharged home. I suspect that his hallucinations is related to the methylprednisolone as the patient says he started having hallucinations shortly after taking this medication is noticed to return and takes medication. I informed him to stop taking the medication. At this point his rash is very mild. I suspect the rash is related to the soap that he was using. I informed him to stop using the soap as well. Informed to have a low threshold to return to ER if he has ongoing hallucinations or recurrent hallucinations despite not taking the medication, worsening rash, difficulty breathing or swallowing, or if he feels like he is worsening in any way. Patient agrees with plan and will be discharged home. Dictation of this chart was performed using voice recognition software; therefore, there may be some unintended grammatical errors. - Vital Signs Vital signs: Temp Pulse Resp BP Pulse Ox 97.2 F 81 16 143/91 H 98 05/27/19 01:51 05/27/19 01:51 05/27/19 01:51 05/27/19 01:51 05/27/19 01:51 Discharge - Discharge Clinical Impression: Rash Medication reaction Qualifiers: Encounter type: initial encounter Qualified Code(s): T50.905A - Adverse effect of unspecified drugs, medicaments and biological substances, initial encounter Condition: Good Disposition: HOME, SELF-CARE Additional Instructions: Please do not use the soap from the [employer] anymore. This is possibly what has caused your rash. Please stop taking the methylprednisolone (Medrol dose pack) as I suspect this is what has caused you to have some hallucinations. Please rest over the next 24 hours. Please have a low threshold to return to the ER if he is have worsening hallucinations, worsening rash, fevers, difficulty breathing, or feel like you are worsening in any way.
== END 2019-05-27 02:24 | disposition home or self-care (01) ==
LOC: ER 01:36
DX: R21 Rash and other nonspecific skin eruption (principal); R44.3 Hallucinations, unspecified; T38.0X5A Adverse effect of glucocorticoids and synthetic analogues, initial encounter; X58.XXXA Exposure to other specified factors, initial encounter
CPT/HCPCS: 99282

== ENCOUNTER 2019-05-28 02:34 | Emergency (ER) | payer SELFPAY ==
[2019-05-28] MEDS ORDERED: LORAZEPAM INJ 2 MG/1 ML VIAL IM ONE (02:39)
[2019-05-28] MEDS ORDERED: HALOPERIDOL LACTATE INJ 5 MG/1 ML VIAL IM ONE (02:39)
[2019-05-28] MEDS ORDERED: LORAZEPAM INJ 2 MG/1 ML VIAL ONE (02:39)
[2019-05-28] MEDS ORDERED: HALOPERIDOL LACTATE INJ 5 MG/1 ML VIAL ONE (02:40)
[2019-05-28 03:09] LABS: ABSOLUTE EOSINOPHILS # (AUTO) 0.1 10^3/uL (0.0-0.6); ABSOLUTE LYMPHOCYTES (AUTO) 2.8 10^3/uL (0.5-4.7); ABSOLUTE MONOCYTES (AUTO) 1.2 10^3/uL (0.1-1.4); ABSOLUTE NEUT (AUTO) 6.8 10^3/uL (1.7-8.2); BASOPHILS % (AUTO) 0.3 % (0-2); EOSINOPHILS % (AUTO) 0.6 % (0-6); HEMATOCRIT 36.6 % (37.9-51.0); HEMOGLOBIN 12.5 g/dL (13.5-17.0); LYMPHOCYTES % (AUTO) 25.5 % (13-45); MEAN CORPUSCULAR HEMOGLOBIN 29.7 pg (27.0-33.4); MEAN CORPUSCULAR HGB CONC 34.3 g/dL (32.0-36.0); MEAN CORPUSCULAR VOLUME 87 fl (80-97); MONOCYTES % (AUTO) 11.3 % (3-13); PLATELET COUNT 262 10^3/uL (150-450); RED BLOOD COUNT 4.23 10^6/uL (4.35-5.55); RED CELL DISTRIBUTION WIDTH 14.2 % (11.5-14.0); SEGMENTED NEUTROPHILS % (AUTO) 62.3 % (42-78); TOTAL CELLS COUNTED % (AUTO) 100 %; WHITE BLOOD COUNT 10.9 10^3/uL (4.0-10.5)
--- NOTE | 2019-05-28 03:11 | ER Document Report ---
ED General - General Stated Complaint: IVC PAPERS Time Seen by Provider: 05/28/19 02:36 Notes: Patient is a 33-year-old male presents with complaint of hallucinations. He is brought in on IVC paperwork. I actually saw the patient yesterday. At that time he percent with his . Patient had a hives-like rash which she had been dealing with for approximately 4 to 5 days. Rash started after he start using a new soap that they bought from [employer]. The time he had been placed on steroids. [place] that probably since starting the steroids he is having hallu cinations. His says that his symptoms would fluctuate. The patient himself felt that his symptoms are worse after he started steroid. At that time it was thought that would stop steroids and his hallucinations would get better. Patient obviously is worsened and is now acting very manic. In the room he cannot stay still. He goes from subject to subject without finishing complete thought. He is not directable. He is very hyper. According to the IVC paperwork at home he was talking about things such as prophecy and García code and was not making a lot of sense. He is doing similar things here. According to his last night he does not have a previous history of psychiatric ill ness. As of last night he was not having any fevers or factious symptoms conjunction with the rash. TRAVEL OUTSIDE OF THE [place] IN LAST 30 DAYS: No - Related Data Allergies/Adverse Reactions: diphenhydramine [From Benadryl] Adverse Reaction (Verified 05/25/19 07:37) Past Medical History - Social History Smoking Status: Unknown if Ever Smoked Frequency of alcohol use: None Drug Abuse: None Family History: Reviewed & Not Pertinent Neurological Medical History: Reports: Hx Migraine Renal/ Medical History: Denies: Hx Peritoneal Dialysis Past Surgical History: Reports: Hx Testicular Surgery Review of Systems - Review of Systems Notes: My Normal Review Basic REVIEW OF SYSTEMS: CONSTITUTIONAL : Patient is hyperactive and difficult time focusing on a single subject. Patient had been recently hallucinating. EENT: Denies eye, ear, throat, or mouth pain or symptoms. Denies nasal or sinus congestion. CARDIOVASCULAR: Denies chest pain. RESPIRATORY: Denies cough, cold, or chest congestion. Denies shortness of breath, difficulty breathing, or wheezing. GASTROINTESTINAL: Denies abdominal pain. Denies nausea, vomiting, or diarrhea. MUSCULOSKELETAL: Denies neck or back pain or joint pain or swelling. SKIN: Hive-like rash that has been recurring for close to a week. HEMATOLOGIC : Denies easy bruising or bleeding. LYMPHATIC: Denies swollen, enlarged glands. NEUROLOGICAL: denies headache. Denies any focal weakness or numbness. PSYCHIATRIC: hallucinations, krista ALL OTHER SYSTEMS REVIEWED AND NEGATIVE. Physical Exam - Vital signs Vitals: Temp Pulse Resp BP Pulse Ox 98.4 F 82 19 135/82 H 98 05/28/19 03:00 05/28/19 03:00 05/28/19 03:00 05/28/19 03:00 05/28/19 03:00 - Notes Notes: General Appearance: Patient is very hyperactive and hard to keep still. difficult to get patient to focus on single question were subject at a time. Vitals: reviewed, See vital signs table. Head: no swelling or tenderness to the head Eyes: PERRL, EOMI, Conjuctiva clear Mouth: No decreasd moisture Neck: Supple, no neck tenderness Lungs: No wheezing, No rales, No rhonci, No accessory muscle use, good air exchange bilaterally. Heart: Normal rate, Regular rythm, No murmur, no rub Abdomen: Normal BS, soft, No rigidity, No abdominal tenderness, No guarding, no rebound, no abdominal masses, no organomegaly Extremities: strength 5/5 in all extremities, good pulses in all extremities, no swelling or tenderness in the extremities, no edema. Skin: Hives-like rash over torso and extremities. Blanchable. Not painful. Neuro: speech clear, oriented x 3, normal affect, responds appropriately to questions. Patient moves all extremities without difficulty. Cranial nerves II through XII are intact. Distal sensation intact. Normal gait. Course - Re-evaluation Re-evalutation: 05/28/19 05:04 Since receiving the Haldol patient is calm and sleeping comfortably. 05/28/19 06:52 Patient does have a small metabolic acidosis on his chemistry panel but otherwise labs are non-concerning. I suspect this likely because patient has been without sleep and has been hyperverbal last 24 hours without rest. I did give him some IV fluids. Of ordered a repeat BMP which is currently running. This comes back normalized and patient will be medically stable for psychiatric evaluation. I do suspect the patient probably does have a psychiatric break being that on exam he is extremely manic and has been having hallucinations which has been progressing without sleep now leading to what appears to be severe krista on his presentation today. Patient still has a hives-like rash. Is more widespread in comparison to yesterday being that he did stop the steroids as we initially thought maybe the steroids was leading to his hallucinations. I do not suspect infection as patient does not have a fever and his rash has been there for close to a week. The classic hives appearing rash with pruritic and nonpainful. He has no signs of meningismus. Patient otherwise looks well. Dictation of this chart was performed using voice recognition software; therefore, there may be some unintended grammatical errors. - Vital Signs Vital signs: Temp Pulse Resp BP Pulse Ox 98.4 F 82 19 135/82 H 98 05/28/19 03:00 05/28/19 03:00 05/28/19 03:00 05/28/19 03:00 05/28/19 03:00 - Laboratory Result Diagrams: 05/28/19 03:00 05/28/19 03:00 Laboratory results interpreted by me: 05/28/19 05/28/19 05/28/19 03:00 03:00 06:22 WBC 10.9 H RBC 4.23 L Hgb 12.5 L Hct 36.6 L RDW 14.2 H Potassium 3.2 L Carbon Dioxide 18 L Glucose 122 H AST 66 H Total Protein 8.6 H Urine Ketones TRACE H Urine Urobilinogen 2.0 H Salicylates < 1.0 L Acetaminophen < 10 L - EKG Interpretation by Me Additional EKG results interpreted by me: 05/28/19 04:20 EKG is reviewed and interpreted by me. EKG shows sinus rhythm with a rate of [address] segment elevation or depression. Patient has a large amount of baseline artifact in leads II to III, aVR, aVL and aVF. This makes his leads difficult to interpret. Old EKG for comparison is from March 15, 2019. RI interval, QRS duration, QT intervals are within normal range. Discharge - Discharge Clinical Impression: Hives, Krista, Hallucinations Condition: Stable Disposition: PSYCH HOSP/UNIT
[2019-05-28 03:31] LABS: ALBUMIN 4.2 g/dL (3.5-5.0); ALKALINE PHOSPHATASE 61 U/L (38-126); ANION GAP 17 (5-19); ASPARTATE AMINO TRANSFERASE 66 U/L (17-59); BILIRUBIN,DIRECT 0.3 mg/dL (0.0-0.4); BILIRUBIN,TOTAL 0.6 mg/dL (0.2-1.3); BLOOD UREA NITROGEN 20 mg/dL (7-20); CALCIUM 9.5 mg/dL (8.4-10.2); CARBON DIOXIDE 18 mmol/L (22-30); CHLORIDE 105 mmol/L (98-107); GLUCOSE 122 mg/dL (75-110); POTASSIUM 3.2 mmol/L (3.6-5.0); TOTAL PROTEIN 8.6 g/dL (6.3-8.2)
[2019-05-28 03:49] LABS: ACETAMINOPHEN < 10 ug/mL (10-30); ALCOHOL < 10 mg/dL (NONE DETECTED); SALICYLATE < 1.0 mg/dL (2.0-20.0)
[2019-05-28] MEDS ORDERED: NORMAL SALINE 1000 ML 1,000 ML IV ONE (04:21)
--- NOTE | 2019-05-28 04:36 | RADIOLOGY REPORT (SQ) ---
EXAM: CT head without IV contrast CLINICAL DATA: hallucinations TECHNICAL DATA: Multiple axial CT images of the brain were performed followed by sagittal and coronal reconstructed images. The CT study is performed according to ALARA (as low as reasonably achievable) or ALARA/IMAGE GENTLY, with automatic adjustment of mA and/or kV according to patient size. Performed on: 05/28/2019 at 4:04 AM Comparisons: Head CT performed on 06/08/2018. FINDINGS: There is no evidence of mass, acute mass effect or midline shift. There are no acute extra-axial fluid collections. There is no evidence of acute intracranial hemorrhage. The cerebral sulci and ventricles are normal in size and configuration. There are no focal abnormal areas of increased or decreased attenuation. There is trace mucosal thickening of the paranasal sinuses. The mastoid air cells are clear. The orbital contents are grossly unremarkable. No acute osseous abnormalities are identified. No focal soft tissue abnormalities are identified. IMPRESSION: 1. There is no evidence of acute intracranial pathology.
[2019-05-28] MEDS ORDERED: POTASSIUM CHLORIDE 10 MEQ CAPSULE.ER PO ONE ×2 (05:01→17:26)
[2019-05-28 06:33] LABS: APPEARANCE,URINE CLEAR; BILIRUBIN,URINE NEGATIVE (NEGATIVE); COLOR,URINE YELLOW; GLUCOSE, URINE NEGATIVE (NEGATIVE); KETONES,URINE TRACE mg/dL (NEGATIVE); LEUKOCYTE ESTERASE,URINE NEGATIVE (NEGATIVE); NITRITE,URINE NEGATIVE (NEGATIVE); PROTEIN,URINE NEGATIVE (NEGATIVE); URINE SPECIFIC GRAVITY 1.015
[2019-05-28 06:45] LABS: URINE AMPHETAMINES SCREEN NEGATIVE; URINE BARBITURATES SCREEN NEGATIVE; URINE BENZODIAZEPINES SCREEN NEGATIVE; URINE COCAINE SCREEN NEGATIVE; URINE MARIJUANA (THC) SCREEN NEGATIVE; URINE METHADONE SCREEN NEGATIVE; URINE PHENCYCLIDINE SCREEN NEGATIVE
[2019-05-28 07:05] LABS: ANION GAP 6 (5-19); BLOOD UREA NITROGEN 17 mg/dL (7-20); CALCIUM 7.9 mg/dL (8.4-10.2); CARBON DIOXIDE 24 mmol/L (22-30); CHLORIDE 109 mmol/L (98-107); GLUCOSE 81 mg/dL (75-110); POTASSIUM 3.2 mmol/L (3.6-5.0)
--- NOTE | 2019-05-28 11:11 | PSYCHOLOGICAL NOTE ---
Psych Note - Psych Note Date seen by psych provider: 05/28/19 Time seen by psych provider: 08:20 Psych Note: Reason For Consult:IVC Consent Permissions: Unable to provide Upon arrival Pt is currently on IVC papers that [facility] brought in. [facility] reports that pt was aggressive/combative with father and neighbor prior to [facility] arrival. [facility] also report pt hitting head on police car. [facility] also report that pt became aggressive/combative with them as well. [facility] report that pt has not slept in 3 days. Safe room initiated prior to pts arrival. Pt shouting "Peace, peaceful, I love [place], you're [place], I'm [place]". Pt continues to shout zoroastrianism statements. Pt started counting people in room aloud. Patient was removed from restraints at 5:20 AM. Patient was placed in restraints because of concerns for the patient's and others safety upon his initial arrival. Patient is currently unable to conduct organized linear conversation. Patient moves back and forth between mumbling and whispering. Patient is heard stating "trying to remember... write everything down.... distracting... distracting.... distracting." Eye contact is poor. Thought processes are disorganized. Diagnosis: Unspecified psychosis Medication recommendations per [facility]'s contracted psychiatrist Dr. Jarret SALAS are as follows thorazine 50mg every 8 hours Cogentin 1 mg daily Impression\\plan: Patient is recommended for continue IVC. Patient continues to demonstrate disorganized thought processes and is unable to engage in organized and linear conversation. Patient be reevaluated. Dr. Pizano was consulted to care management of this patient; attending physicians in agreement with recommendations and disposition.
[2019-05-28] MEDS ORDERED: CHLORPROMAZINE HCL 50 MG TABLET PO SCH (13:30)
[2019-05-28] MEDS ORDERED: BENZTROPINE MESYLATE 1 MG TABLET PO SCH (13:45)
--- NOTE | 2019-05-28 17:32 | ER Document Report ---
Doctor's Note Notes: 05/28/19 17:31 Rounds: Chart reviewed and patient and rest from when I went to examine him. Patient's labs were unremarkable except for low potassium. He had 30 mEq earlier today and give him 60 mEq now. Patient being evaluated for suicidal thoughts. Vital signs are all essentially normal. Patient appears to be medica lly stable for transfer or discharge. Patient is going to be discharged. Requests medication for sleeping. I am going to prescribe Vistaril. Jaime Arias MD
[2019-05-28 18:22] VITALS: BP 147/78
--- NOTE | 2019-05-29 18:44 | EKG REPORT ---
SEVERITY:- BORDERLINE ECG - SINUS RHYTHM ARTIFACTS : Confirmed by: Mckenzie Crowley 29-May-2019 18:43:38
== END 2019-05-28 18:30 | disposition home or self-care (01) ==
LOC: ER 02:34
DX: F30.9 Manic episode, unspecified (principal); R44.3 Hallucinations, unspecified; L50.9 Urticaria, unspecified; F90.9 Attention-deficit hyperactivity disorder, unspecified type; E87.2 Acidosis
CPT/HCPCS: 93005; 99285; 96372; 96360; 36415; 80307 ×4; 85025; 80053; 81001; 70450; 93010; J3490; J1630; J2060; J7030

== ENCOUNTER 2019-05-31 23:14 | Emergency (ER) | payer SELFPAY ==
[2019-05-31 23:21] VITALS: BP 147/84
--- NOTE | 2019-05-31 23:37 | ER Document Report ---
ED Substance Abuse / Acc. OD - General Chief Complaint: Possible Overdose Stated Complaint: POSSIBLE OVERDOSE Time Seen by Provider: 05/31/19 23:35 Mode of Arrival: Ambulatory Information source: Patient, Friend Notes: HISTORY OF PRESENT ILLNESS: Patient is a 33-year-old male with a past medical history of schizophrenia who presents with insomnia after being started on hydroxyzine for anxiety. Patient reports that he was told to come to the emergency department to be evaluated in the started on a safe medication for his insomnia. He currently denies any other symptoms. Onset: "A few days now" Provocation: Possible medication Quality: "I cannot sleep because my anxiety medicine makes me jacked up" Radiation: None Severity: Moderate Timing: Constant SI/HI: None Hallucinations: None Current therapist: Local psychiatry Current treatment: Antipsychotics REVIEW OF SYSTEMS: CONSTITUTIONAL : Denies fever or chills, no sweats. Denies recent illness. EENT: Denies eye, ear, throat, or mouth pain or symptoms. Denies nasal or sinus congestion. CARDIOVASCULAR: Denies chest pain. RESPIRATORY: Denies cough, cold, or chest congestion. Denies shortness of breath, difficulty breathing, or wheezing. GASTROINTESTINAL: Denies abdominal pain. Denies nausea, vomiting, or diarrhea. Denies constipation. GENITOURINARY: Denies difficulty urinating, painful urination, burning, freque ncy, or blood in urine. FEMALE GENITOURINARY: Denies vaginal bleeding, abnormal or irregular periods. Last menstrual period MUSCULOSKELETAL: Denies neck or back pain or joint pain or swelling. SKIN: Denies rash or skin lesions. HEMATOLOGIC : Denies easy bruising or bleeding. LYMPHATIC: Denies swollen, enlarged glands. NEUROLOGICAL: Denies altered mental status or loss of consciousness. Denies headache. Denies weakness or paralysis or loss of use of either side. Denies problems with gait or speech. Denies sensory or motor loss. PSYCHIATRIC: Positive for insomnia. Denies suicidal/homicidal thoughts. Denies anxiety or stress or depression. All other systems reviewed and negative. PHYSICAL EXAMINATION: GENERAL: Well-appearing, well-nourished and in no acute distress. HEAD: Atraumatic, normocephalic. No scalp deformity, depression, or crepitance. EYES: Pupils are 3 mm and equal/round/reactive to light, extraocular movements intact, sclera anicteric, conjunctiva are normal. ENT: Nares patent bilaterally, oropharynx clear without exudates or palatal petechia. Moist mucous membranes. No tonsil hypertrophy. NECK: Normal range of motion, supple without lymphadenopathy. LUNGS: Breath sounds present, equal, and clear to auscultation bilaterally. No wheezes, rales, or rhonchi. HEART: Regular rate and rhythm without murmurs, rubs, or gallops. 2+ peripheral pulses. Normal capillary refill. ABDOMEN: Soft, nontender, nondistended. Normoactive bowel sounds. No guarding, no rebound. No masses appreciated. BACK: Normal contour, no midline tenderness. Rectal exam deferred. GENITAL/PELVC: Deferred. EXTREMITIES: Normal range of motion, no pitting or edema. No cyanosis. NEUROLOGICAL: No focal neurological deficits. Moves all extremities spontaneously and on command. PSYCH: Normal mood, normal affect. No suicidal thoughts/ideations. No homicidal thoughts/ideations. No hallucinations. SKIN: Warm, dry, normal turgor, no rashes or lesions noted. ASSESSMENT AND PLAN: This patient is a 33-year-old male who presents with insomnia that could be related to his underlying schizophrenia, however could also be related to his medications as an adverse effect. 1. Will discharge the patient with a prescription for trazodone at night as needed for insomnia. 2. Will discharge the patient home with strict return precautions and follow-up with psychiatry. All results were explained to and discussed with the patient, and all questions addressed and answered for the patient. The patient voices both understanding and agreeing with the plan. TRAVEL OUTSIDE OF THE [place] IN LAST 30 DAYS: No - HPI Patient complains to provider of: Other - Insomnia Onset: Just prior to arrival Onset/Duration: Gradual Quality of pain: No pain Severity: None Pain Level: Denies Associated Symptoms: Other - Insomnia Similar symptoms previously: No Recently seen / treated by doctor: No - Related Data Allergies/Adverse Reactions: diphenhydramine [From Benadryl] Adverse Reaction (Verified 05/31/19 23:15) Past Medical History - General Information source: Patient, Friend - Social History Smoking Status: Never Smoker Chew tobacco use (# tins/day): No Frequency of alcohol use: None Drug Abuse: Marijuana Lives with: Alone Family History: Reviewed & Not Pertinent Patient has suicidal ideation: No Patient has homicidal ideation: No - Past Medical History Cardiac Medical History: Reports: None Pulmonary Medical History: Reports: None EENT Medical History: Reports: None Neurological Medical History: Reports: Hx Migraine Endocrine Medical History: Reports: None Renal/ Medical History: Denies: Hx Peritoneal Dialysis Malignancy Medical History: Reports None GI Medical History: Reports: None Musculoskeletal Medical History: Reports None Skin Medical History: Reports None Psychiatric Medical History: Reports: Hx Anxiety, Hx Schizophrenia Traumatic Medical History: Reports: None Infectious Medical History: Reports: None Past Surgical History: Reports: Hx Testicular Surgery - Immunizations Immunizations up to date: Yes Review of Systems - Review of Systems Constitutional: No symptoms reported EENT: No symptoms reported Cardiovascular: No symptoms reported Respiratory: No symptoms reported Gastrointestinal: No symptoms reported Genitourinary: No symptoms reported Male Genitourinary: No symptoms reported Musculoskeletal: No symptoms reported Skin: No symptoms reported Hematologic/Lymphatic: No symptoms reported Neurological/Psychological: No symptoms reported -: Yes All other systems reviewed and negative Physical Exam - Vital signs Vitals: Temp Pulse Resp BP Pulse Ox 97.7 F 90 20 147/84 H 97 05/31/19 23:18 05/31/19 23:18 05/31/19 23:18 05/31/19 23:18 05/31/19 23:18 Interpretation: Normal - General General appearance: Appears well, Alert - HEENT Head: Normocephalic, Atraumatic Eyes: Normal Pupils: PERRL - Respiratory Respiratory status: No respiratory distress Chest status: Nontender Breath sounds: Normal Chest palpation: Normal - Cardiovascular Rhythm: Regular Heart sounds: Normal auscultation Murmur: No - Abdominal Inspection: Normal Distension: No distension Bowel sounds: Normal Tenderness: Nontender Organomegaly: No organomegaly - Back Back: Normal, Nontender - Extremities General upper extremity: Normal inspection, Nontender, Normal color, Normal ROM, Normal temperature General lower extremity: Normal inspection, Nontender, Normal color, Normal ROM, Normal temperature, Normal weight bearing. No: Thomas's sign - Neurological Neuro grossly intact: Yes Cognition: Normal Orientation: AAOx4 [place] Coma Scale Eye Opening: Spontaneous [place] Coma Scale Verbal: Oriented [place] Coma Scale Motor: Obeys Commands [place] Coma Scale Total: 15 Speech: Normal Motor strength normal: LUE, RUE, LLE, RLE Sensory: Normal - Psychological Associated symptoms: Normal affect, Normal mood - Skin Skin Temperature: Warm Skin Moisture: Dry Skin Color: Normal Course - Vital Signs Vital signs: Temp Pulse Resp BP Pulse Ox 97.7 F 90 20 147/84 H 97 05/31/19 23:18 05/31/19 23:18 05/31/19 23:18 05/31/19 23:18 05/31/19 23:18 Discharge - Discharge Clinical Impression: Insomnia Condition: Good Disposition: HOME, SELF-CARE Instructions: Insomnia ([facility]) Additional Instructions: You have been evaluated in the Emergency Department for insomnia, likely due to some of your medications. While here, you had a medical screening exam and it is now safe to be discharged home. Please follow-up with your primary physician as instructed in 1 week to be rechecked. Return to the Emergency Department if you experience hallucinations, thoughts of hurting yourself, thoughts of hurting other people, increased aggression, or any other concerning symptoms. Prescriptions: Trazodone HCl [Desyrel 50 mg Tablet] 50 mg PO QHS #30 tablet Print Language: Gabonese
== END 2019-06-01 00:15 | disposition home or self-care (01) ==
LOC: ER 23:14
DX: G47.00 Insomnia, unspecified (principal); F41.9 Anxiety disorder, unspecified; F20.9 Schizophrenia, unspecified; Z79.899 Other long term (current) drug therapy; F12.10 Cannabis abuse, uncomplicated
CPT/HCPCS: 99283

== ENCOUNTER 2020-03-17 13:51 | Emergency (ER) | payer MEDICAID ==
[2020-03-17 14:35] LABS: ABSOLUTE LYMPHOCYTES (AUTO) 1.7 10^3/uL (0.5-4.7); ABSOLUTE MONOCYTES (AUTO) 0.7 10^3/uL (0.1-1.4); ABSOLUTE NEUT (AUTO) 4.9 10^3/uL (1.7-8.2); BASOPHILS % (AUTO) 0.5 % (0-2); EOSINOPHILS % (AUTO) 0.7 % (0-6); HEMOGLOBIN 13.2 g/dL (13.5-17.0); LYMPHOCYTES % (AUTO) 23.1 % (13-45); MEAN CORPUSCULAR HEMOGLOBIN 29.8 pg (27.0-33.4); MEAN CORPUSCULAR HGB CONC 34.7 g/dL (32.0-36.0); MEAN CORPUSCULAR VOLUME 86 fl (80-97); MONOCYTES % (AUTO) 9.6 % (3-13); PLATELET COUNT 241 10^3/uL (150-450); RED BLOOD COUNT 4.42 10^6/uL (4.35-5.55); RED CELL DISTRIBUTION WIDTH 14.3 % (11.5-14.0); SEGMENTED NEUTROPHILS % (AUTO) 66.1 % (42-78); TOTAL CELLS COUNTED % (AUTO) 100 %; WHITE BLOOD COUNT 7.4 10^3/uL (4.0-10.5)
[2020-03-17 14:47] LABS: ALBUMIN 4.5 g/dL (3.5-5.0); ALKALINE PHOSPHATASE 70 U/L (38-126); ANION GAP 11 (5-19); ASPARTATE AMINO TRANSFERASE 37 U/L (17-59); BILIRUBIN,TOTAL 0.4 mg/dL (0.2-1.3); BLOOD UREA NITROGEN 11 mg/dL (7-20); CALCIUM 9.6 mg/dL (8.4-10.2); CARBON DIOXIDE 24 mmol/L (22-30); CHLORIDE 106 mmol/L (98-107); GLUCOSE 107 mg/dL (75-110); POTASSIUM 3.9 mmol/L (3.6-5.0); TOTAL PROTEIN 9.3 g/dL (6.3-8.2)
[2020-03-17 14:48] LABS: ACETAMINOPHEN < 10 ug/mL (10-30); ALCOHOL < 10 mg/dL (NONE DETECTED); SALICYLATE < 1.0 mg/dL (2.0-20.0)
[2020-03-17 15:15] LABS: APPEARANCE,URINE CLEAR; BILIRUBIN,URINE NEGATIVE (NEGATIVE); COLOR,URINE YELLOW; GLUCOSE, URINE NEGATIVE (NEGATIVE); KETONES,URINE NEGATIVE (NEGATIVE); LEUKOCYTE ESTERASE,URINE NEGATIVE (NEGATIVE); NITRITE,URINE NEGATIVE (NEGATIVE); PROTEIN,URINE 30 mg/dL (NEGATIVE); URINE SPECIFIC GRAVITY 1.009; UROBILINOGEN,URINE NEGATIVE mg/dL (<2.0)
[2020-03-17 15:29] LABS: URINE AMPHETAMINES SCREEN NEGATIVE; URINE BARBITURATES SCREEN NEGATIVE; URINE BENZODIAZEPINES SCREEN NEGATIVE; URINE COCAINE SCREEN NEGATIVE; URINE MARIJUANA (THC) SCREEN NEGATIVE; URINE METHADONE SCREEN NEGATIVE; URINE PHENCYCLIDINE SCREEN NEGATIVE
[2020-03-17] MEDS ORDERED: LORAZEPAM INJ 2 MG/1 ML VIAL IM ONE (15:55)
[2020-03-17] MEDS ORDERED: HALOPERIDOL LACTATE INJ 5 MG/1 ML VIAL IM ONE (15:55)
--- NOTE | 2020-03-17 16:05 | ER Document Report ---
ED Psych Disorder / Suicide - General TRAVEL OUTSIDE OF THE [place] IN LAST 30 DAYS: No - Related Data Home Medications: Geodon injections noncompliant <ANTONETTE PEPE - Last Filed: 03/18/20 19:04> <PAIGE VINCENT - Last Filed: 03/19/20 09:40> - General Chief Complaint: Psych Problem Stated Complaint: PSYCH Time Seen by Provider: 03/17/20 15:44 Notes: CHIEF COMPLAINT: Manic episode HPI: 34-year-old male with history of schizophrenia bipolar disorder presenting for manic episode over the last 5 days. Patient feels like he cannot get his thoughts in order. States he has not slept in 5 days. Denies thoughts of harming himself or harming others but is concerned about the episode he is having. Has been off his Geodon for several months. ROS: See HPI - all other systems were reviewed and are otherwise negative Constitutional: no fever Eyes: no drainage, no blurred vision ENT: no runny nose, no sore throat Cardiovascular: no chest pain Resp: no SOB, no cough GI: no vomiting, no diarrhea, no abdominal pain : no dysuria Integumentary: no rash Allergy: no hives Musculoskeletal: no extremity pain or swelling Neurological: no numbness/tingling, no weakness MEDICATIONS: I agree with the patient medications as charted by the RN. ALLERGIES: I agree with the allergies as charted by the RN. PAST MEDICAL HISTORY/PAST SURGICAL HISTORY: Reviewed and agree as charted by RN. SOCIAL HISTORY: Reviewed and agree as charted by RN. FAMILY HISTORY: No significant familial comorbid conditions directly related to patient complaint EXAM: Reviewed vital signs as charted by RN. CONSTITUTIONAL: Alert and oriented and responds appropriately to questions. Well-appearing; well-nourished HEAD: Normocephalic; atraumatic EYES: PERRL; Conjunctivae clear, sclerae non-icteric ENT: normal nose; no rhinorrhea; moist mucous membranes; pharynx without lesions noted, no uvula edema or deviation, no tonsillar hypertrophy, phonation normal NECK: Supple without meningismus; non-tender; no cervical lymphadenopathy, no masses CARD: RRR; no murmurs, no clicks, no rubs, no gallops; symmetric distal pulses RESP: Normal chest excursion without splinting or tachypnea; breath sounds clear and equal bilaterally; no wheezes, no rhonchi, no rales, pulse oximetry 8% on room air not hypoxic ABD/GI: Normal bowel sounds; non-distended; soft, non-tender, no rebound, no guarding; no palpable organomegaly or masses. BACK: The back appears normal and is non-tender to palpation, there is no CVA tenderness EXT: Normal ROM in all joints; non-tender to palpation; no cyanosis, no effusions, no edema SKIN: Normal color for age and race; warm; dry; good turgor; no acute lesions noted NEURO: Moves all extremities equally; Motor and sensory function intact PSYCH: The patient's mood and manner are agitated, tearful, manic and hyper. Yohana oming and personal hygiene are appropriate. MDM: 34-year-old male with history of bipolar schizophrenia presenting for manic episode has not slept in the last 5 days. Patient is very agitated at this time has been evaluated by the mental health team. They recommend Haldol and Ativan initially until they can get his medications regulated as he is very verbally aggressive at this time (ANTONETTE PEPE) - Related Data Allergies/Adverse Reactions: diphenhydramine [From Benadryl] Adverse Reaction (Verified 03/17/20 14:47) Past Medical History - Social History Smoking Status: Unknown if Ever Smoked Chew tobacco use (# tins/day): No Frequency of alcohol use: None Drug Abuse: None Family History: Reviewed & Not Pertinent Neurological Medical History: Reports: Hx Migraine Renal/ Medical History: Denies: Hx Peritoneal Dialysis Psychiatric Medical History: Reports: Hx Anxiety, Hx Schizophrenia Past Surgical History: Reports: Hx Testicular Surgery - Immunizations Immunizations up to date: Yes <ANTONETTE PEPE - Last Filed: 03/18/20 19:04> Physical Exam - Vital signs Vitals: Temp Pulse Resp BP Pulse Ox 98.1 F 101 H 24 H 149/101 H 99 03/17/20 13:51 03/17/20 13:51 03/17/20 13:51 03/17/20 13:51 03/17/20 13:51 Course - Laboratory Result Diagrams: 03/17/20 14:17 03/17/20 14:17 <ANTONETTE PEPE - Last Filed: 03/18/20 19:04> - Laboratory Result Diagrams: 03/17/20 14:17 03/17/20 14:17 <PAIGE VINCENT - Last Filed: 03/19/20 09:40> - Re-evaluation Re-evalutation: 03/17/20 16:27 Patient lab work does not show acute emergent abnormalities he is medically cleared for psychiatric service 03/18/20 13:00 Patient has been evaluated by the psychiatric team. They are going to make make medication change recommendations but will keep the patient today 03/18/20 14:26 Patient medication recommendations by the psychiatric team, they wish Depakene liquid 500 mg twice daily. Discontinuing Depakote and Thorazine. They request another EKG because of evaluation of QT prolongation 03/18/20 19:04 Requested by nursing to evaluate the patient's right great toe as he is been complaining of some pain there. On exam he has very mild ingrown toenail on the medial aspect. There is no associated cellulitic change at this time. Will likely need to follow-up with PCP or podiatry at some point to have the portion of the ingrown toenail removed (ANTONETTE PEPE) 03/17/20 23:37 Medications recommended by the psych provider Silvio were initiated. Clonidine 0.1 mg every night at bedtime. Depakote she recommended 500 mg twice daily I discussed this with Dr. Reyes and to 50 mg twice daily was ordered taking we discussed that tomorrow. Zyprexa 5 mg every night at bedtime and Cogentin 1 mg every night at bedtime have been ordered. 03/19/20 09:39 On 03/18/2020 at 2030 he was transferred to [place] in the accompaniment of a deputy. He was alert oriented and in stable condition at time of transfer. (PAIGE VINCENT) - Vital Signs Vital signs: Temp Pulse Resp BP Pulse Ox 98.0 F 92 18 138/89 H 97 03/18/20 20:30 03/18/20 20:30 03/18/20 20:30 03/18/20 20:30 03/18/20 20:30 - Laboratory Laboratory results interpreted by me: 03/17/20 03/17/20 03/17/20 14:06 14:17 14:17 Hgb 13.2 L RDW 14.3 H Total Protein 9.3 H Urine Protein 30 H Salicylates < 1.0 L Acetaminophen < 10 L Discharge <ANTONETTE PEPE - Last Filed: 03/18/20 19:04> <PAIGE VINCENT - Last Filed: 03/19/20 09:40> - Discharge Clinical Impression: Altered mood associated with christina, Ingrown toenail of right foot Disposition: PSYCH HOSP/UNIT Additional Instructions: You are being transferred to [place] for further care. You will be sent straight from here to [place].
[2020-03-17] MEDS ORDERED: CHLORPROMAZINE HCL INJ 25 MG/1 ML AMPULE IM ONE (16:49)
--- NOTE | 2020-03-17 20:03 | PSYCHOLOGICAL NOTE ---
Psych Note - Psych Note Date seen by psych provider: 03/17/20 Time seen by psych provider: 15:45 Psych Note: Medication recommendations per [facility]'s contracted psychiatrist Dr Jarret SALAS are as follows Clonidine 0.1mg at bedtime Depakene 500mg twice daily Zyprexa 5mg at bedtime Cogentin 1mg at bedtime Impression\plan: Patient is recommended for full IVC; Paperwork has been signed, faxed to [employer] [facility] and placed in patient's chart patient is presenting manic with labile affect. Patient frequently cries. Patient has pressured speech with frequent repetitive statements. Patient has reportedly been off his medications and has not slept for approximately 2 days. Patient will be reevaluated. Dr. Pizano was consulted in the care management of this patient; any physicians in agreement with recommendations and disposition. [facility]
--- NOTE | 2020-03-17 22:04 | EKG REPORT ---
SEVERITY:- NORMAL ECG - SINUS RHYTHM : Confirmed by: Mckenzie Crowley 17-Mar-2020 22:03:39
[2020-03-17] MEDS: OLANZAPINE 5 MG TABLET PO SCH (22:22)
[2020-03-17] MEDS: BENZTROPINE MESYLATE 1 MG TABLET PO SCH (22:22)
[2020-03-17] MEDS: CLONIDINE HCL 0.1 MG TABLET PO SCH (22:22)
[2020-03-17] MEDS: DIVALPROEX SODIUM 250 MG TAB.SR.24H PO SCH (23:05)
[2020-03-18] MEDS ORDERED: LORAZEPAM INJ 2 MG/1 ML VIAL IM ONE (04:26)
[2020-03-18] MEDS ORDERED: CHLORPROMAZINE HCL INJ 25 MG/1 ML AMPULE IM PRN (10:17)
[2020-03-18] MEDS: DIVALPROEX SODIUM 250 MG TAB.SR.24H PO SCH (11:13)
[2020-03-18] MEDS ORDERED: VALPROATE SODIUM SYRUP 250 MG/5 ML UDCUP PO SCH (15:00)
[2020-03-18] MEDS: VALPROATE SODIUM SYRUP 250 MG/5 ML UDCUP PO SCH (16:14)
--- NOTE | 2020-03-18 18:37 | EKG REPORT ---
SEVERITY:- NORMAL ECG - SINUS RHYTHM : Confirmed by: Mckenzie Crowley 18-Mar-2020 18:36:42
[2020-03-18] MEDS ORDERED: IBUPROFEN 600 MG TABLET PO ONE (19:05)
[2020-03-18 19:56] VITALS: BP 138/89
[2020-03-19] MEDS: BENZTROPINE MESYLATE 1 MG TABLET PO SCH (01:26)
[2020-03-19] MEDS: CLONIDINE HCL 0.1 MG TABLET PO SCH (01:26)
[2020-03-19] MEDS: OLANZAPINE 5 MG TABLET PO SCH (01:27)
[2020-03-19] MEDS: VALPROATE SODIUM SYRUP 250 MG/5 ML UDCUP PO SCH (01:27)
== END 2020-03-18 20:30 ==
LOC: ER 13:51
DX: F31.9 Bipolar disorder, unspecified (principal); F20.9 Schizophrenia, unspecified; T43.596A Underdosing of other antipsychotics and neuroleptics, initial encounter; Z91.14 Patient's other noncompliance with medication regimen; L60.0 Ingrowing nail
CPT/HCPCS: 93005 ×2; 99285; 96372; 36415; 80307 ×4; 85025; 80053; 81001; 93010 ×2; J3490 ×7; J3230 ×2; J1630; J2060 ×2